=== PATIENT | male | born 1965 | race African-American/Black ===

== ENCOUNTER 2017-02-02 07:50 | Outpatient (CLI) | payer OTHER ==
[~2017-02-02] VITALS: Ht 182.9 cm; Wt 105.2 kg
[~2017-02-02 07:50] MED LIST: NAPR500T PO; REFR0.1D OU; [UNRECOGNIZED DRUG - CODE] PO
[2017-02-02] MEDS ORDERED: NS 1,000 ML IV ONE (08:00)
[2017-02-02] MEDS ORDERED: PROPOFOL 200 MG/20 ML VIAL As Ordered ONE ×2 (09:46→09:47)
[2017-02-02] MEDS ORDERED: LIDOCAINE 2% INJ 100 MG/5 ML SDV (FOR ANES.) As Ordered ONE (09:47)
--- NOTE | 2017-02-02 09:52 | ROOR ---
Patient Name: Tomasa Winters Procedure Date: 02/02/2017 9:08 AM Date of : 1965 Age: 51 Room: [facility] Gender: Male Note Status: Finalized Procedure: Colonoscopy Indications: Screening for colorectal malignant neoplasm Providers: Tim Montes MD Referring MD: ANGEL PENALOZA MD Requesting Provider: Medicines: Monitored Anesthesia Care Complications: No immediate complications. Procedure: Pre-Anesthesia Assessment: - Prior to the procedure, a History and Physical was performed, and patient medications and allergies were reviewed. The patient is competent. The risks and benefits of the procedure and the sedation options and risks were discussed with the patient. All questions were answered and informed consent was obtained. Patient identification and proposed procedure were verified by the physician, the nurse and the anesthesiologist in the procedure room. Mental Status Examination: alert and oriented. Airway Examination: normal oropharyngeal airway and neck mobility. Respiratory Examination: clear to auscultation. CV Examination: normal. Prophylactic Antibiotics: The patient does not require prophylactic antibiotics. Prior Anticoagulants: The patient has taken no previous anticoagulant or antiplatelet agents. ASA Grade Assessment: I - A normal, healthy patient. After reviewing the risks and benefits, the patient was deemed in satisfactory condition to undergo the procedure. The anesthesia plan was to use monitored anesthesia care (MAC). Immediately prior to administration of medications, the patient was re-assessed for adequacy to receive sedatives. The heart rate, respiratory rate, oxygen saturations, blood pressure, adequacy of pulmonary ventilation, and response to care were monitored throughout the procedure. The physical status of the patient was re-assessed after the procedure. The Colonoscope was introduced through the anus and advanced to the cecum, identified by appendiceal orifice and ileocecal valve. The colonoscopy was somewhat difficult due to poor bowel prep. The patient tolerated the procedure well. The quality of the bowel preparation was adequate to identify polyps 6 mm and larger in size. Findings: The perianal and digital rectal examinations were normal. The colon (entire examined portion) appeared normal. The retroflexed view of the distal rectum and anal verge was normal and showed no anal or rectal abnormalities. Impression: - The entire examined colon is normal. - The distal rectum and anal verge are normal on retroflexion view. - No specimens collected. Recommendation: - Discharge patient to home (ambulatory). - Repeat colonoscopy in 10 years for screening purposes. Tim Montes MD Tim Montes MD 02/02/2017 9:51:58 AM This report has been signed electronically. Number of Addenda: 0 Note Initiated On: 02/02/2017 9:08 AM Estimated Blood Loss: Estimated blood loss: none.
[2017-02-02 10:15] VITALS: BP 101/75
== END 2017-02-02 10:25 | disposition home or self-care (01) ==
LOC: M OPP 07:50
PROVIDERS: ATTEND Surgery
DX: Z12.11 Encounter for screening for malignant neoplasm of colon (principal); R94.31 Abnormal electrocardiogram [ECG] [EKG]; Z86.19 Personal history of other infectious and parasitic diseases; R06.83 Snoring; M54.2 Cervicalgia; Z79.899 Other long term (current) drug therapy

== ENCOUNTER → 2020-01-23 | Outpatient (CLI) | payer OTHER ==
[~2020-01-23] MED LIST changes: +NAPR-837 PO; -NAPR500T PO; +PROHANCE 279.3MG/ML 15ML VIAL As Ordered ONE; +PROHANCE 279.3MG/ML 5ML VIAL As Ordered ONE
--- NOTE | 2020-01-23 16:22 | REPVR ---
PROCEDURE INFORMATION: Exam: MR Cervical Spine Without and With Contrast Exam date and time: 01/23/2020 3:22 PM Age: 54 years old Clinical indication: Neck pain; Prior surgery; Surgery date: 6+ months; Surgery type: Laminectomy; Additional info: Cervical post laminectomy syndrome TECHNIQUE: Imaging protocol: Multiplanar magnetic resonance images of the cervical spine without and with intravenous contrast. Contrast material: PROHANCE; Contrast volume: 20 ml; Contrast route: INTRAVENOUS (IV); COMPARISON: No relevant prior studies available. FINDINGS: Limitations: Examination is limited by motion artifact. C5 through C7 ACDF. Cervical vertebral body heights are intact. Straightening of the cervical lordosis. The dens is intact. No abnormal marrow signal. No cord compression, expansion, or abnormal cord signal. Visualized structures of the posterior fossa are unremarkable. No abnormal enhancement within the cervical spine. Soft tissues are unremarkable. C2-C3: No significant canal or foraminal narrowing. C3-C4: Posterior disc protrusion and uncovertebral spurring cause mild canal narrowing and moderate bilateral foraminal narrowing. C4-C5: Posterior disc protrusion and uncovertebral spurring cause mild to moderate canal narrowing. Severe bilateral foraminal narrowing. C5-C6: Status post ACDF. Uncovertebral spurring contributes to moderate to severe bilateral foraminal narrowing. No significant canal narrowing. C6-C7: Status post ACDF. No significant canal or foraminal narrowing. C7-T1: Posterior disc protrusion and uncovertebral spurring cause moderate canal narrowing with effacement of the thecal sac. Severe bilateral foraminal narrowing. 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 Electronically signed by: Isaiah Pablo On 01/23/2020 16:22:03 PM
== END ==
LOC: M RAD 14:38
PROVIDERS: ATTEND Pain Medicine Interventional Pain Medicine
DX: M96.1 Postlaminectomy syndrome, not elsewhere classified (principal)
CPT/HCPCS: 72156; A9576